=== PATIENT | male | born 2000 | race Caucasian/White ===

== ENCOUNTER 2024-11-21 09:24 | Emergency (ER) | payer OTHER ==
[~2024-11-21] VITALS: Ht 180.3 cm; Wt 75.0 kg
[2024-11-21] MEDS ORDERED: ALBU18HF12 IH (09:32)
[2024-11-21 09:34] VITALS: TEMP 97.7
[2024-11-21 09:45] VITALS: BP 120/73; PULSE 66; RESP 16; O2SAT 98
[2024-11-21] MEDS ORDERED: SULF-261 PO (09:48)
[2024-11-21] MEDS ORDERED: AMOX-457 PO (09:48)
[2024-11-21] MEDS: AMOX TR/POT CLAV 875 MG/125 MG TABLET PO ONE (09:54)
[2024-11-21] MEDS: SULFAMETHOX/TRIMETH DS 800-160 MG/TABLET PO ONE (09:54)
== END 2024-11-21 10:41 | disposition home or self-care (01) ==
LOC: EMS 09:28
DX: H00.011 Hordeolum externum right upper eyelid (principal); J45.909 Unspecified asthma, uncomplicated; Z98.890 Other specified postprocedural states; Z79.899 Other long term (current) drug therapy
CPT/HCPCS: 99283